=== PATIENT | male | born 1965 | race Caucasian/White ===

== ENCOUNTER → 2020-03-14 | Outpatient (CLI) | payer BC, OTHER ==
[~2020-03-14] MED LIST: BYSTOLIC20 MG PO; LEXAPRO20 MG PO; PERCOCET 5-3251 EACH PO; ZYRTEC10 M5 PO
== END ==
LOC: LAB 15:15
PROVIDERS: ATTEND Surgery
DX: Z01.812 Encounter for preprocedural laboratory examination (principal); Z20.828 Contact with and (suspected) exposure to other viral communicable diseases

== ENCOUNTER → 2020-03-16 | Day surgery (SDC) | payer BC, OTHER ==
[~2020-03-16] VITALS: Ht 177.8 cm; Wt 63.5 kg
--- NOTE | ~2020-03-16 | O ---
[facility] [place] [address] OPERATIVE REPORT Name: ANA CEE Room #: REG [facility].#: [id number] Admission: 03/16/20 Attend Phys: Nate Treviño MD Discharge: Date of : 67 Report #: [id number] THIS REPORT FOR: cc: Ismael Fernando Alan Z. DO Franey, Thomas A. MD ~ DATE OF SERVICE: 03/16/[address] Nate Treviño and Dr. Ismael Fernando. PREOPERATIVE DIAGNOSIS: Right inguinal hernia. POSTOPERATIVE DIAGNOSIS: Right inguinal hernia with a right cord lipoma. PROCEDURE: Right inguinal hernia repair with Prolene hernia system mesh and excision of a right cord lipoma. SURGEON: Nate Treviño MD ANESTHESIA: General. DESCRIPTION OF PROCEDURE: The patient was brought to the operating room and placed on the operative table in the supine position. Sequential compression devices were in place for DVT prophylaxis. There was no indication for preoperative antibiotics. The patient underwent a general endotracheal anesthesia and the right inguinal area was then prepped and draped in a sterile fashion. Skin and subcutaneous tissue were then infiltrated with 0.5% Marcaine. Right inguinal skin incision was then performed using #10 scalpel blade. Hemostasis was obtained using electrocautery. Dissection was carried down through subcutaneous tissue to the external oblique fascia, which was then incised with a knife and opened with the Metzenbaum scissors. The ilioinguinal nerve was identified, dissected free, injected with the local and preserved. The cord was then elevated up and held in place with a Kenny drain. Cremasteric muscle fibers were then split in the direction of their fibers using a clamp and electrocautery. A cord lipoma was identified, dissected free, clamped, excised, and tied with a 2-0 chromic tie. An indirect inguinal hernia sac was then identified, dissected free, and reduced back through the internal ring. There was a weakening around the internal ring superior to the cord. This was dissected free and also reduced back into the preperitoneal space. An extended Prolene hernia system mesh was then inserted through the internal ring and the underlay patch was then deployed into the preperitoneal space. The connector was left in the internal ring and the floor was then tightened around the connector using running a 2-0 Prolene two-layer Bassini repair. The overlay patch was then deployed into the inguinal canal and the medial portion of the patch was secured at the pubic tubercle using the same running 2-[address] [address] OPERATIVE REPORT Name: ANA CEE Room #: REG [facility].#: [id number] Admission: 03/16/20 Attend Phys: Nate Treviño MD Discharge: Date of : 67 Report #: [id number] suture. The mesh was then secured superiorly at the connector using simple interrupted 2-0 Vicryl sutures. The mesh was split and wrapped around the cord, secured to the inguinal ligament with simple interrupted 2-0 Vicryl suture. The cord and ilioinguinal nerve were then returned to the canal intact. The external oblique fascia was then closed using a running 2-0 Vicryl suture. Roque's fascia was then reapproximated using 3 simple interrupted 2-0 chromic sutures and the skin then closed with a running 4-0 subcuticular Vicryl stitch. The wound was then dressed with Mastisol, 1/2-inch Steri-Strips cut in half, Telfa, 4 x 4 gauze, sponge, and tape. The patient was then awakened from the general anesthesia, extubated, and taken to the recovery room in good condition. Estimated blood loss was approximately 10 mL and the patient tolerated procedure well. All sponge, lap, and instrument counts correct x 2. By: 1520 1544 Nate Terviño MD /nt
[2020-03-16 13:03] VITALS: BP 149/91
--- NOTE | 2020-03-16 14:11 | EKG ---
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
[2020-03-16 15:52] VITALS: BP 149/91
--- NOTE | 2020-03-20 17:09 | PATH ---
[facility] [address] [address] PATHOLOGY RPT PROCEDURE Name: SHRAVAN CEE Room #: REG [facility] M.R.#: [id number] Admission: 03/16/20 Date of : 67 Discharge: Report #: [id number] Path Case #: [id number] [facility] Accession Number: [id number] . 01 Material submitted: . hernia - RIGHT CORD LIPOMA. Modifiers: right . 01 Clinical history: . HERNIA REPAIR,INGUINAL UNILATERAL . 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 (IUV:pit 03/20/2020) QTP 03/20/2020 1349 Local . 02 Electronically signed: . Brenda Waller MD, Pathologist NPI- [id number] . 01 Gross description: . The specimen is received in formalin, labeled "Geo, Shravan, cord lipoma right" and consists of a segment of yellow brock fibromembranous adipose tissue measuring 7.0 x 2.2 x 0.8 cm. Sectioning reveals no gross lesions and outreach representative tissue is submitted in A1. (SDY; 03/19/2020) SYU/SYU 03/19/2020 1545 Local . 02 Pathologist provided ICD-10: K40.90 . 02 CPT . 552118 Specimen Comment: A courtesy copy of this report has been sent to [phone] Specimen Comment: Report sent to Performed at: [address], [place], [place] [id number] MD Jack Wadsworth MD Phone: [phone] Performed at: [address] [id number] MD Brenda Waller MD Phone: [phone]
== END | disposition home or self-care (01) ==
LOC: OR 11:06
PROVIDERS: ATTEND Surgery
DX: K40.90 Unilateral inguinal hernia, without obstruction or gangrene, not specified as recurrent (principal); I10 Essential (primary) hypertension; M19.90 Unspecified osteoarthritis, unspecified site; F41.9 Anxiety disorder, unspecified; F17.210 Nicotine dependence, cigarettes, uncomplicated; E78.5 Hyperlipidemia, unspecified; Z72.89 Other problems related to lifestyle; Z79.899 Other long term (current) drug therapy; Z88.8 Allergy status to other drugs, medicaments and biological substances; Z98.890 Other specified postprocedural states
CPT/HCPCS: 50010; 50101; 50386; 50417; 54111; 56524; 56525; 56526; 56528; 62110; 62900; 70005